=== PATIENT | female | born 1980 | race African-American/Black ===

== ENCOUNTER 2021-01-26 10:07 | Emergency (ER) | payer OTHER ==
[~2021-01-26] VITALS: Ht 157.5 cm; Wt 99.3 kg
[2021-01-26] MEDS ORDERED: FLEXERIL PO (10:40)
[2021-01-26] MEDS ORDERED: IBUPROFEN 800800 M1 PO (10:40)
[2021-01-26 11:25] LABS: ABSOLUTE NEUTROPHILS 3.6 thou/uL (1.4-8.2); BASOPHILS 0.7 % (0.0-2.0); EOSINOPHILS 1.1 % (0.0-3.0); HEMATOCRIT 38.5 % (37.0-47.0); HEMOGLOBIN 13.2 gm/dL (12.0-15.0); LYMPHOCYTES 28.2 % (24.0-44.0); MCH 32.3 pg (26.0-34.0); MCHC 34.3 g/dL (28.0-37.0); MCV 94.2 fL (80.0-100.0); MONOCYTES 9.1 % (1.0-8.0); PLATELET COUNT 197 thou/uL (150-400); POLYS 60.9 % (36.0-66.0); RBC 4.09 mil/uL (4.20-5.00); RDW 12.6 % (10.5-14.5)
[2021-01-26 11:32] LABS: ANION GAP 9 mmol/L (7-16); BUN 12 mg/dL (7-18); CALCIUM 8.6 mg/dL (8.5-10.1); CHLORIDE 101 mmol/L (98-107); CO2 29 mmol/L (21-32); GLUCOSE 78 mg/dL (74-106); POTASSIUM 3.8 mmol/L (3.5-5.1); SODIUM 139 mmol/L (136-145)
--- NOTE | 2021-01-26 11:41 | EKG ---
[place] [address] [facility] [place] [address] ELECTROCARDIOGRAM REPORT Name: PAULA MARTIN Room #: [facility]#: [id number] Admission: 01/26/21 Attend Phys: Discharge: Date of : 76 Report #: [id number] [facility] ED Test Date: 2021-01-26 Test Time: 10:13:35 Pat Name: PAULA MARTIN Department: Room: Gender: F [employer]: KEANU : 1980 Requested By: David Gaston Order Number: [id number] MD: Regino Sandoval Measurements Intervals [place] Rate: 77 P: 26 LA: 144 QRS: 15 QRSD: 93 T: 0 QT: 419 QTc: 475 Interpretive Statements Sinus rhythm RSR' in V1 or V2, right VCD or RVH No previous ECG available for comparison Electronically Signed On 01-26-2021 11:41:08 CDT by Regino Sandoval [email or web address] <ELECTRONICALLY SIGNED> By: Regino Sandoval MD 01/26/21 1141 [id number] [id number] MD NATALI Tillman
[2021-01-26 11:42] LABS: ALBUMIN 3.6 g/dL (3.4-5.0); SGOT 14 U/L (15-37); SGPT 26 U/L (14-59); TOTAL BILIRUBIN 0.4 mg/dL (0.2-1.0); TOTAL PROTEIN 7.5 g/dL (6.4-8.2); TROPONIN-I <0.06 ng/mL (<0.06)
[2021-01-26] MEDS ORDERED: ASA81BEC PO (13:28)
[2021-01-26] MEDS ORDERED: DOXYCYCLINE 10100 MG PO (13:28)
[2021-01-26 13:37] VITALS: BP 119/77
== END 2021-01-26 13:40 | disposition home or self-care (01) ==
LOC: ER 10:07
PROVIDERS: Emergency Medicine
DX: R07.89 Other chest pain (principal); Z20.822 Contact with and (suspected) exposure to COVID-19; R20.2 Paresthesia of skin; J18.9 Pneumonia, unspecified organism; Z88.1 Allergy status to other antibiotic agents; Z88.5 Allergy status to narcotic agent; Z88.0 Allergy status to penicillin; Z86.73 Personal history of transient ischemic attack (TIA), and cerebral infarction without residual deficits; Z79.82 Long term (current) use of aspirin